=== PATIENT | female | born 1995 | race Caucasian/White ===

== ENCOUNTER 2019-06-20 07:14 | Emergency (ER) | payer OTHER ==
[2019-06-20 07:26] VITALS: BP 114/70
--- NOTE | 2019-06-20 07:27 | ED Physician Documentation ---
History of Present Illness - Stated complaint Stated Complaint: FEVER - Chief complaint Chief Complaint: Fever - History obtained from History obtained from: Patient, Family - History of Present Illness Timing: Prior to arrival - Additonal information Additional information: Patient is a previously healthy 24-year-old female presenting with several hours of fever that decreased with Tylenol administration. Patient reports that everyone in her family is sick with similar symptoms. Patient reports associated headache and one episode of dry heaves. Patient also endorses nonproductive cough. Patient denies specific abdominal pain, urinary changes, or stool changes. Unknown . No other improving or worsening factors noted. Review of Systems Constitutional: reports: Fever Ears: denies: Ear pain Nose: denies: Rhinorrhea / runny nose, Congestion Throat: denies: Sore throat Respiratory: reports: Dyspnea, Cough GI: reports: Nausea, Vomiting. denies: Abdominal Pain, Diarrhea : denies: Dysuria PD PAST MEDICAL HISTORY - Past Medical History Past Medical History: No - Past Surgical History General: Other (Hernia repair) - Allergies Allergies/Adverse Reactions: Allergies Allergy/AdvReac Type Severity Reaction Status Date / Time No Known Drug Allergies Allergy Verified 06/20/19 07:26 PD ED PE NORMAL - Vitals Vital signs reviewed: Yes - General General: Alert and oriented X 3, No acute distress, Well developed/nourished - HEENT HEENT: Atraumatic, Moist mucous membranes, Pharynx benign, Dentition benign - Neck Neck: Supple, no meningeal sign - Cardiac Cardiac: RRR, No murmur - Respiratory Respiratory: No respiratory distress, Clear bilaterally - Abdomen Abdomen: Normal bowel sounds, Soft, Non tender, Non distended - Derm Derm: Normal color, Warm and dry, No rash - Extremities Extremities: No deformity, No tenderness to palpate - Neuro Neuro: Alert and oriented X 3, No motor deficit, No sensory deficit - Psych Psych: Normal mood, Normal affect Results - Vitals Vitals: Vital Signs - 24 hr 06/20/19 07:23 Temperature 37.7 C H Heart Rate 111 H Respiratory 17 Rate Blood Pressure 114/70 O2 Saturation 97 Oxygen O2 Source Room air PD MEDICAL DECISION MAKING - ED course Complexity details: considered differential, d/w patient, d/w family ED course: Patient presenting with isolated fever that resolved with Tylenol. Did not find evidence to indicate meningitis, tonsillitis, pharyngitis, peritonsillar abscess. Do not have high suspicion for pneumonia and pulmonary exam benign. Intra-abdominal pathology is unlikely although considered. Also have low suspicion for pyelonephritis and UTI at this time. Did offer chest x-ray, as well as flu swab as patient's family is particularly concerned about influenza and patient did start symptoms within the last several hours and would be in the window of treatment with Tamiflu. However, patient declined. Discussed supportive cares, return precautions, follow-up. Departure - Departure Disposition: 01 Home, Self Care Clinical Impression: Fever Qualifiers: Fever type: unspecified Qualified Code(s): R50.9 - Fever, unspecified Condition: Good Instructions: ED Fever Unconf Cause Follow-Up: your,doctor [Other] - Within 3 Days Comments: Recommend use of Tylenol every 6 hours to control fever with consideration of not using more than 4 g in a 24-hour. If not , may also use ibuprofen to help control fever, inflammation, and muscle aches. Recommend hydration, healthy diet, and follow-up with primary care physician next 2 to 3 days. Return to ED sooner if experience worsening symptoms or have other concerns.
== END 2019-06-20 07:48 | disposition home or self-care (01) ==
LOC: ED 07:14
DX: R50.9 Fever, unspecified (principal); R51 Headache; R05 Cough; R11.2 Nausea with vomiting, unspecified
CPT/HCPCS: 99282

== ENCOUNTER 2019-10-04 11:31 | Emergency (ER) | payer OTHER ==
[2019-10-04 11:44] VITALS: BP 124/75
[2019-10-04] MEDS ORDERED: IBUPROFEN 600 MG TABLET PO STA (12:34)
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
[2019-10-04 13:36] LABS: HCG UR QUAL NEGATIVE
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
== END 2019-10-04 14:59 | disposition home or self-care (01) ==
LOC: ED 11:31
DX: S80.01XA Contusion of right knee, initial encounter (principal); S20.212A Contusion of left front wall of thorax, initial encounter; V89.2XXA Person injured in unspecified motor-vehicle accident, traffic, initial encounter; Y92.410 Unspecified street and highway as the place of occurrence of the external cause; E01.0 Iodine-deficiency related diffuse (endemic) goiter
CPT/HCPCS: 73562; 81025; 99283; 99284; A9270

== ENCOUNTER 2020-04-04 08:00 | Outpatient (CLI) | payer MEDICAID ==
--- NOTE | 2020-04-05 04:40 | Ultrasound Report ---
Reason: TEST POSITIVE Procedure Date: 04/04/2020 Accession Number: [id number] / [id number] Procedure: US - OB First Trimester CPT Code: Final Report FULL RESULT: EXAM: FIRST TRIMESTER OBSTETRIC ULTRASOUND (Less than 11 weeks) EXAM DATE: 04/04/2020 08:58 AM. CLINICAL HISTORY: TEST POSITIVE. LMP: 02/03/2020. COMPARISONS: None. TECHNIQUE: Transabdominal and transvaginal ultrasound examination with static image documentation. CLINICAL DATES: EGA 8 weeks 5 days with DURAN 11/09/2020 based on LMP. ASSESSMENT: Gestational Sac: Single intrauterine. Mean gestational sac diameter: 29 mm = 8 weeks 0 days. Embryo: CRL (crown-rump length) 20 mm = 8 weeks 4 days. Cardiac activity: 165 beats per minute. Yolk sac: 4 mm. Amniotic fluid: Not accurately assessed at this gestational age. Early placenta: Not visible at this gestational age. Other: No perigestational fluid collection demonstrated. MATERNAL STRUCTURES: Uterus: Variable position. Unremarkable. Cervix: Closed. Right Ovary/Adnexa: The ovary measures 3.1 x 2.5 x 1.7 cm, volume 7.0 cc. Corpus luteum measuring 1.4 x 1.6 x 1.3 cm. Left Ovary/Adnexa: The ovary measures 3.4 x 2.1 x 1.7 cm, volume 6.5 cc. Unremarkable. Free Fluid: Trace amount in the left adnexa. Other: None. IMPRESSION: 1. Single viable intrauterine at EGA 8 weeks 4 days 11/10/2020 with DURAN based on crown-rump length, which is concordant with clinical dates. 2. Assigned dating is DURAN 11/09/2020 based on LMP. GERALDINE
== END 2020-04-04 08:01 | disposition home or self-care (01) ==
LOC: DI 08:00
PROVIDERS: ATTEND Advanced Practice Midwife
DX: Z32.01 Encounter for pregnancy test, result positive (principal)
CPT/HCPCS: 76801; 76817

== ENCOUNTER 2020-04-15 08:00 | Outpatient (CLI) | payer MEDICAID ==
[2020-04-15 14:38] LABS: MUDS CUTOFF CONCENTRATIONS CUTOFF CONC BELOW:
[2020-04-15 14:52] LABS: BILIRUBIN,URINE NEGATIVE (NEGATIVE); GLUCOSE, URINE (UA) NEGATIVE (NEGATIVE); KETONES,URINE (UA) NEGATIVE (NEGATIVE); LEUKOCYTE ESTERASE, URINE LARGE (NEGATIVE); NITRITE,URINE NEGATIVE (NEGATIVE); OCCULT BLOOD,URINE TRACE-INTA (NEGATIVE); PH,URINE 6.5 PH (5.0-7.5); PROTEIN,URINE NEGATIVE (NEGATIVE); UROBILINOGEN,URINE 0.2 (NORMAL) E.U./dL (NORMAL)
[2020-04-15 15:02] LABS: BACTERIA,URINE Rare /HPF (None Seen); CLARITY,URINE CLEAR (CLEAR); RBC,URINE 0-5 /HPF (0-5); SQUAMOUS EPITHELIAL CELL,UR MANY Squamous (<= Few)
[2020-04-15 15:03] LABS: AMPHETAMINE SCREEN,URINE NEGATIVE (NEGATIVE); BENZODIAZEPINES SCREEN, URINE NEGATIVE (NEGATIVE); COCAINE SCREEN URINE NEGATIVE (NEGATIVE); METHADONE SCREEN, URINE NEGATIVE (NEGATIVE); METHAMPHETAMINES SCREEN, URINE NEGATIVE (NEGATIVE); OPIATE SCREEN, URINE NEGATIVE (NEGATIVE); OXYCODONE SCREEN, URINE NEGATIVE (NEGATIVE); PROPOXYPHENE SCREEN, URINE NEGATIVE (NEGATIVE); TRICYCLIC ANTIDEPRESSANT,URINE NEGATIVE (NEGATIVE)
== END 2020-04-15 23:59 | disposition home or self-care (01) ==
LOC: LAB.R 08:00
PROVIDERS: ATTEND Advanced Practice Midwife
DX: Z34.90 Encounter for supervision of normal pregnancy, unspecified, unspecified trimester (principal)
CPT/HCPCS: 80306; 81001; 87086; 87491; 87591; 87661

== ENCOUNTER 2020-04-15 08:00 | Outpatient (CLI) | payer MEDICAID ==
[2020-04-15 18:52] LABS: TRICHOMONAS VAGINALIS DNA NEGATIVE (NEGATIVE)
== END 2020-04-15 23:59 | disposition home or self-care (01) ==
LOC: LAB.R 08:00
PROVIDERS: ATTEND Advanced Practice Midwife
DX: Z11.3 Encounter for screening for infections with a predominantly sexual mode of transmission (principal)
CPT/HCPCS: 87491; 87591; 87661

== ENCOUNTER 2020-06-10 08:56 | Outpatient (CLI) | payer MEDICAID ==
[2020-06-10 09:34] LABS: BASOPHILS % (AUTO) 0.3 %; EOSINOPHILS # (AUTO) 0.1 10^3/uL (0.0-0.7); EOSINOPHILS % (AUTO) 1.2 %; LYMPHOCYTES # (AUTO) 1.7 10^3/uL (1.5-3.5); LYMPHOCYTES % (AUTO) 17.4 %; MEAN CORPUSCULAR HGB CONC 33.9 g/dL (32.0-36.0); MEAN CORPUSCULAR VOLUME 88.5 fL (81.0-99.0); MEAN PLATELET VOLUME 10.7 fL (7.9-10.8); MONOCYTES # (AUTO) 0.4 10^3/uL (0.0-1.0); NEUTROPHILS # (AUTO) 7.5 10^3/uL (1.5-6.6); NEUTROPHILS % (AUTO) 76.8 %; PLT - PLATELET COUNT 224 10^3/uL (130-450); RED CELL DISTRIBUTION WIDTH 13.3 % (12.0-15.0); WHITE BLOOD COUNT 9.8 x10^3/uL (4.8-10.8)
[2020-06-11 12:01] LABS: HEPATITIS C ANTIBODY NON-REACTIVE (NON-REACTIVE)
[2020-06-11 12:13] LABS: HEPATITIS B SURFACE ANTIGEN NON-REACTIVE (NON-REACTIVE)
[2020-06-11 12:45] LABS: HIV AG/AB 4TH GEN NON-REACTIVE (NON-REACTIVE)
== END 2020-06-10 08:57 | disposition home or self-care (01) ==
LOC: LAB 08:56
PROVIDERS: ATTEND Advanced Practice Midwife
DX: Z34.90 Encounter for supervision of normal pregnancy, unspecified, unspecified trimester (principal); Z36.0 Encounter for antenatal screening for chromosomal anomalies
CPT/HCPCS: 36415; 81220; 81511; 81599; 85025; 86592; 86762; 86803; 86850; 86900; 86901; 87340; 87389

== ENCOUNTER 2020-06-20 06:27 | Outpatient (CLI) | payer MEDICAID ==
--- NOTE | 2020-06-20 10:18 | Ultrasound Report ---
PROCEDURE: OB Detailed Eval INDICATIONS: SUPERVISION OF NORMAL OUTSIDE/PRIOR DATING DATA: Last menstrual period (LMP): 02/03/2020. LMP-based estimated date of delivery (DURAN): 11/09/2020. First dating scan (date and location): 04/04/2020. Estimated date of delivery (DURAN) from first dating scan: 11/10/2020. TECHNIQUE: Real-time scanning was performed of the fetus, with image documentation and biometric measurements. Endovaginal scanning: Not needed. COMPARISON: 04/04/2020 OB ultrasound. FINDINGS: General: A single living intrauterine gestation is present. Presentation: Vertex Placenta: Placental position is posterior, without previa. Amniotic fluid index: 11.5 cm, 20th percentile for gestational age. heart rate: 135 beats per minute. Maternal cervical canal: 4.7 cm long; normal length is 2.5 cm or more. biometrics: Biparietal diameter: 4.4 cm, 19 weeks 1 day Head circumference: 16.6 cm, 19 weeks 2 days Abdominal circumference: 14.6 cm, 19 weeks 6 days Femur length: 3.0 cm, 19 weeks 2 days Estimated gestational age from initial scan: 19 weeks 4 days. Composite gestational age from present scan: 19 weeks 3 days Estimated weight and percentile: 298 g, 43rd percentile Measurement variability in biometric dating: +/- 10 days from 12-20 weeks gestation, +/- 2 weeks from 20-30 weeks gestation, +/- 3 weeks at 30 weeks gestation or later. Anatomic survey: Neuro: Ventricles are normal at less than 10 mm. Cisterna magna is normal at 3-11 mm. Cerebellum i s normal in size and morphology. Nuchal skin fold: Normal at less than 6 mm between 14 and 20 weeks gestational age. Face: Nose and lips, facial profile are normal. Spine: No evidence for spina bifida. Heart: 4-chambered heart is present, with normal ventricular outflow tracts. Diaphragm: Diaphragm is intact. Stomach: Left-sided stomach is present. Kidneys: No hydronephrosis. Normal is less than 5 mm in 2nd trimester, less than 7 mm in 3rd trimester. Cord: 3 vessel cord has orthotopic insertion. Bladder: Normal in size. Extremities: All 4 extremities are visualized. IMPRESSION: Appropriate interval growth, normal survey of anatomy. Somewhat limited quality of visualizatio n of the spine, facial profile, hands and feet due to maternal body habitus. Reviewed by: Eliu Fierro MD on 06/20/2020 10:17 AM PDT Approved by: Eliu Fierro MD on 06/20/2020 10:17 AM PDT Station ID: [id number]
== END 2020-06-20 06:28 | disposition home or self-care (01) ==
LOC: DI 06:27
PROVIDERS: ATTEND Advanced Practice Midwife
DX: Z34.90 Encounter for supervision of normal pregnancy, unspecified, unspecified trimester (principal)
CPT/HCPCS: 76811

== ENCOUNTER 2020-08-21 08:00 | Outpatient (CLI) | payer MEDICAID ==
[2020-08-21 11:52] LABS: MEAN CORPUSCULAR HEMOGLOBIN 28.6 pg (27.0-31.0); MEAN CORPUSCULAR VOLUME 89.6 fL (81.0-99.0); MEAN PLATELET VOLUME 11.1 fL (7.9-10.8); RED BLOOD COUNT 3.84 10^6/uL (4.20-5.40); RED CELL DISTRIBUTION WIDTH 13.5 % (12.0-15.0); WHITE BLOOD COUNT 9.6 x10^3/uL (4.8-10.8)
== END 2020-08-21 23:59 | disposition home or self-care (01) ==
LOC: LAB.WCP 08:00
PROVIDERS: ATTEND Advanced Practice Midwife
DX: Z36.89 Encounter for other specified antenatal screening (principal)
CPT/HCPCS: 36415; 82950; 85025; 85027

== ENCOUNTER 2020-08-22 16:31 | Outpatient (CLI) | payer MEDICAID ==
[2020-08-22 17:03] VITALS: BP 122/73
--- NOTE | 2020-08-22 17:15 | PROVIDER PROGRESS NOTE ---
Subjective - Subjective Subjective: Green vaginal discharge this week, increased with time, about a dime-sized amount on underwear when she goes to restroom. No LOF, no itching, no odor, no VB. No contractions. Good FM EFG normal Vaginal pink, copious opaque cottage-cheese clumpy discharge green-yellow tint. pH <4 A/P: yeast vaginitis in , FHT normal with doppler alone. Treat with 7d monistat and call PRN problems. Objective - Vital Signs/Intake & Output Vital Signs: Vital Signs x48h Temp Pulse Resp BP Pulse Ox 08/22/20 17:02 98.2 F 73 16 122/73 100
== END 2020-08-22 17:08 | disposition home or self-care (01) ==
LOC: WFO 16:31 → FBP 16:33 → WFO 17:08
PROVIDERS: ATTEND Obstetrics & Gynecology
DX: O98.819 Other maternal infectious and parasitic diseases complicating pregnancy, unspecified trimester (principal); B37.3 Candidiasis of vulva and vagina

== ENCOUNTER 2020-09-22 16:01 | Emergency (ER) | payer MEDICAID ==
[2020-09-22 16:12] VITALS: BP 121/73
--- NOTE | 2020-09-22 16:29 | ED Physician Documentation ---
PD HPI ABD PAIN - Stated complaint Stated Complaint: ABD PX - Chief complaint Chief Complaint: Abd Pain - History obtained from History obtained from: Patient - Additional information Additional information: This is a 25-year-old G1 at 33 weeks who presents with 2 days of right periumbilical pain. She has a history of an umbilical hernia repair with mesh at that site 3 years ago. Pain is much worse with twisting and motion and is very mild to nonexistent at rest. She denies cramping or bleeding. No fluid loss. No urinary complaints. Review of Systems Constitutional: denies: Fever, Chills Cardiac: denies: Chest pain / pressure, Palpitations Respiratory: denies: Dyspnea, Cough PD PAST MEDICAL HISTORY - Past Medical History Past Medical History: No - Past Surgical History Past Surgical History: Yes General: Other - Present Medications Home Medications: Ambulatory Orders Medication Instructions Recorded Confirmed Clarithromycin [Clarithromycin ER] 1,000 mg PO DAILY #7 tab.er.24h 06/22/19 Ondansetron Odt [Zofran] 4 mg TL Q6H PRN #10 tablet 06/22/19 Cyclobenzaprine [Flexeril] 10 mg PO TID PRN #20 tablet 10/04/19 - Allergies Allergies/Adverse Reactions: Allergies Allergy/AdvReac Type Severity Reaction Status Date / Time clindamycin Allergy Rash Verified 09/22/20 16:11 - Social History Does the pt smoke?: No Smoking Status: Never smoker Does the pt drink ETOH?: Yes Does the pt have substance abuse?: No - Immunizations Immunizations are current?: Yes - POLST Patient has POLST: No PD ED PE NORMAL - Vitals Vital signs reviewed: Yes - General General: Alert and oriented X 3, No acute distress - Abdomen Abdomen: Normal bowel sounds, Soft, Non tender, Other (Bedside sono live IUP HR 136) - Back Back: No CVA TTP, No spinal TTP - Derm Derm: Normal color, Warm and dry - Neuro Neuro: Alert and oriented X 3 Results - Vitals Vitals: Vital Signs - 24 hr 09/22/20 16:02 Temperature 36.6 C Heart Rate 78 Respiratory 20 Rate Blood Pressure 121/73 O2 Saturation 99 Oxygen O2 Source Room air - Labs Labs: Laboratory Tests 09/22/20 09/22/20 16:51 16:51 WBC 8.8 RBC 3.77 L Hgb 10.9 L Hct 33.2 L MCV 88.1 MCH 28.9 MCHC 32.8 RDW 13.3 Plt Count 211 MPV 10.3 Neut # (Auto) 6.2 Lymph # (Auto) 1.8 [place] # (Auto) 0.7 Eos # (Auto) 0.1 Baso # (Auto) 0.0 Absolute Nucleated RBC 0.00 Nucleated RBC % 0.0 Sodium 133 L Potassium 3.6 Chloride 102 Carbon Dioxide 23 Anion Gap 8.0 BUN 6 Creatinine 0.5 Estimated GFR (MDRD) 152 Glucose 72 Calcium 8.7 PD MEDICAL DECISION MAKING - ED course ED course: 25-year-old woman presents with right-sided abdominal pain at the site of an old hernia repair with mesh. She is 33 weeks . Fetus looks fine on ultrasound and nonstress testing is reported to be normal by the OB nurse. She remained nontender on reevaluation. No white count. Departure - Departure Disposition: 01 Home, Self Care Clinical Impression: Abdominal pain Qualifiers: Abdominal location: generalized Qualified Code(s): R10.84 - Generalized abdominal pain Record reviewed to determine appropriate education?: Yes Instructions: ED Strain Abdominal Muscle Comments: Blood work looks good, this could be round ligament pain or recurrent hernia. Return if worsening. Follow-up with your OB regardless, next available appointment. Discharge Date/Time: 09/22/20 17:44
[2020-09-22 17:10] LABS: BASOPHILS % (AUTO) 0.2 %; EOSINOPHILS # (AUTO) 0.1 10^3/uL (0.0-0.7); EOSINOPHILS % (AUTO) 0.9 %; HGB - HEMOGLOBIN 10.9 g/dL (12.0-16.0); LYMPHOCYTES # (AUTO) 1.8 10^3/uL (1.5-3.5); LYMPHOCYTES % (AUTO) 20.5 %; MEAN CORPUSCULAR HEMOGLOBIN 28.9 pg (27.0-31.0); MEAN CORPUSCULAR HGB CONC 32.8 g/dL (32.0-36.0); MEAN CORPUSCULAR VOLUME 88.1 fL (81.0-99.0); MEAN PLATELET VOLUME 10.3 fL (7.9-10.8); MONOCYTES # (AUTO) 0.7 10^3/uL (0.0-1.0); MONOCYTES % (AUTO) 7.6 %; NEUTROPHILS # (AUTO) 6.2 10^3/uL (1.5-6.6); NEUTROPHILS % (AUTO) 70.2 %; PLT - PLATELET COUNT 211 10^3/uL (130-450); RED BLOOD COUNT 3.77 10^6/uL (4.20-5.40); RED CELL DISTRIBUTION WIDTH 13.3 % (12.0-15.0); WHITE BLOOD COUNT 8.8 x10^3/uL (4.8-10.8)
[2020-09-22 17:21] LABS: CALCIUM 8.7 mg/dL (8.5-10.3); CREATININE 0.5 mg/dL (0.4-1.0)
--- NOTE | 2020-09-22 19:50 | PROCEDURE REPORT ---
- HPI Diagnosis/Indication for NST: Other (Seen in ED for periumbical pain related to hernia repair) Current EDU 11/09/20 Gestation 33 Weeks and 1 Days 1 Para 0 Vital Signs Temperature 97.9 F 09/22/20 16:02 Heart Rate 78 09/22/20 16:02 Respiratory Rate 20 09/22/20 16:02 Blood Pressure 121/73 09/22/20 16:02 O2 Saturation 99 09/22/20 16:02 Temperature 97.9 F 09/22/20 16:02 Heart Rate 78 09/22/20 16:02 Respiratory Rate 20 09/22/20 16:02 Blood Pressure 121/73 09/22/20 16:02 O2 Saturation 99 09/22/20 16:02 - NST Procedure NST Procedure Start Date 09/22/20 Start Time 16:32 Stop Time 17:00 Vibroacoustic Stimulation Used No Patient States Movement Yes EFM 120 mod jeff 15x15 accels no decels TOCO: quiet - Results and Plan Findings/Impression: Patient is a 25 yo at 33+1 wga seen in ED for pain related to hernia mesh. Endorses FM. No CTX/VB/LOF Cat I tracing with no evidence of PTL FU in clinic for routine PNC.
== END 2020-09-22 17:44 | disposition home or self-care (01) ==
LOC: ED 16:01
DX: O99.891 Other specified diseases and conditions complicating pregnancy (principal); R10.84 Generalized abdominal pain; T85.848A Pain due to other internal prosthetic devices, implants and grafts, initial encounter; Y83.8 Other surgical procedures as the cause of abnormal reaction of the patient, or of later complication, without mention of misadventure at the time of the procedure; Z3A.33 33 weeks gestation of pregnancy
CPT/HCPCS: 36415; 80048; 85025; 99282; 99283

== ENCOUNTER 2020-10-02 12:22 | Outpatient (CLI) | payer MEDICAID ==
[2020-10-02 16:17] VITALS: BP 119/66
[2020-10-02 17:38] LABS: MEAN CORPUSCULAR HEMOGLOBIN 30.1 pg (27.0-31.0); MEAN CORPUSCULAR HGB CONC 34.3 g/dL (32.0-36.0); MEAN CORPUSCULAR VOLUME 87.7 fL (81.0-99.0); MEAN PLATELET VOLUME 10.4 fL (7.9-10.8); RED BLOOD COUNT 3.66 10^6/uL (4.20-5.40); RED CELL DISTRIBUTION WIDTH 13.3 % (12.0-15.0); WHITE BLOOD COUNT 10.3 x10^3/uL (4.8-10.8)
--- NOTE | 2020-10-02 19:31 | Ultrasound Report ---
PROCEDURE: OB Limited INDICATIONS: rule out abruption OUTSIDE/PRIOR DATING DATA: Last menstrual period (LMP): 02/03/2020. LMP-based estimated date of delivery (DURAN): 11/09/2020. First dating scan (date and location): 04/04/2020. Estimated date of delivery (DURAN) from first dating scan: 11/10/2020. TECHNIQUE: Real-time scanning was performed of the fetus, with image documentation. Endovaginal scanning: Endovaginal scanning was performed and will be reported separately. COMPARISON: 06/20/2020 FINDINGS: A single living intrauterine gestation is present. Presentation: Vertex Placenta: Placental position is posterior, without previa. Amniotic fluid index: 17.3 cm, 69th percentile for gestational age. Largest vertical pocket measured 5.1 cm heart rate: 125 beats per minutes. Maternal cervical canal: 3.7 cm long; normal length is 2.5 cm or more. Estimated gestational age from initial scan: 34 weeks and 3 days. IMPRESSION: Single living intrauterine gestation at approximately 34 weeks and 3 days gestational age. No evidenc e for placental abruption. Recommend continued clinical surveillance. Findings were reported to ATIF Evans at 1844 hours by the carpenter rough Reviewed by: Alberto Lockwood MD on 10/02/2020 6:29 PM [place] Approved by: Alberto Lockwood MD on 10/02/2020 6:29 PM [facility] Station ID: [id number]
--- NOTE | 2020-10-02 19:32 | Ultrasound Report ---
PROCEDURE: OB Limited INDICATIONS: rule out abruption OUTSIDE/PRIOR DATING DATA: Last menstrual period (LMP): 02/03/2020. LMP-based estimated date of delivery (DURAN): 11/09/2020. First dating scan (date and location): 04/04/2020. Estimated date of delivery (DURAN) from first dating scan: 11/10/2020. TECHNIQUE: Real-time scanning was performed of the fetus, with image documentation. Endovaginal scanning: Endovaginal scanning was performed to evaluate cervical length. COMPARISON: 06/20/2020 FINDINGS: A single living intrauterine gestation is present. Presentation: Vertex Placenta: Placental position is posterior, without previa. Amniotic fluid index: 17.3 cm, 69th percentile for gestational age. Largest vertical pocket measured 5.1 cm heart rate: 125 beats per minutes. Maternal cervical canal: 3.7 cm long; normal length is 2.5 cm or more. Estimated gestational age from initial scan: 34 weeks and 3 days. IMPRESSION: Single living intrauterine gestation at approximately 34 weeks and 3 days gestational age. No evidenc e for placental abruption. Maternal cervix is normal in length and closed. Recommend continued clinical surveillance. Findings were reported to ATIF Evans at 1844 hours by the bead supervisor Reviewed by: Alberto Lockwood MD on 10/02/2020 6:30 PM [facility] Approved by: Alberto Lockwood MD on 10/02/2020 6:30 PM [facility] Station ID: [id number]
--- NOTE | 2020-10-02 19:48 | PROVIDER PROGRESS NOTE ---
- HPI Chief Complaint: Fall Current : Current EDU 11/09/20 Gestation 34 Weeks and 4 Days 1 Para 0 Vital Signs Temperature 36.7 C 10/02/20 12:34 Heart Rate 88 10/02/20 12:34 Respiratory Rate 16 10/02/20 12:34 Blood Pressure 111/71 10/02/20 12:34 O2 Saturation 99 10/02/20 12:34 Temperature 37.1 C 10/02/20 16:16 Heart Rate 81 10/02/20 16:16 Respiratory Rate 16 10/02/20 16:16 Blood Pressure 119/66 10/02/20 16:16 O2 Saturation 99 10/02/20 16:16 - Procedures OB Procedure Performed: NST Diagnosis/Indication for NST: Other NST Procedure: NST Procedure Start Time 16:32 Stop Time 17:00 - Plan Plan: S: Karuna presents to [facility] after being directed to do so by [facility] secondary to a fall that occurred last night at approximately 1830- 1900. [place] a boat and states she was walking and fell through a lujan and down the stairs. She denies losing consciousness or hitting her head. She states she fell on her right hip and does not feel her belly was directly impacted but is feeling some tenderness in her right hip/side area. She denies vaginal bleeding or leakage of fluid and she reports +FM. She states she did not call last night when she fell because she did not feel her abdomen was affected and she did not experience any decreased movement or contractions. She reports this morning she did notice some lower back pain which she rates 6/10 on a pain scale that is constant. She took 1000mg ibuprofen at approximately 1100 this afternoon and did feel it helped slightly. She decided to call the clinic secondary to some new onset lower abdominal tightening which lasts anywhere from 10-30 seconds. She states this morning and throughout the afternoon she continued to feel consistent movement and denies vaginal bleeding or leakage of fluid. She denies GARCES, visual disturbances, RUQ or epigastric pain. She denies urinary symptoms. O: BP 111/71, T 36.7, RR 16. Heart RRR w/o M/G/R, lungs CTAB, abdomen gravid, soft and nontender. No rigidity noted on palpation. movement appreciated with abdominal palpation. Bilateral LE's no edema. NST performed 10/02/2020 NST read 10/02/2020 NST reactive: FHR baseline 135, moderate variability, + accels, no decels Contractions visible ranging from 10-40 seconds via tocometry and pt appreciates contractions in her lower abdomen and rates them 5-6/10 on a pain scale currently. Contractions palpate mild. Limited OB ultrasound reveals single, viable intrauterine . Posterior placenta w/o evidence of previa or obvious abruption. 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 CBC WNL - platelet 190 Fibrinogen 507 A: Fall in FHR Category I (monitored x 6.5 hours with monitoring ending 24 hours after fall occurred) No evidence of abruption Mild, intermittent uterine contractions with labor and placental abruption ruled out RH-positive Plan: Reviewed warning signs and symptoms in depth with pt and advised her to present immediately with worsening discomfort with contractions, vaginal bleeding, leakage of fluid, or decreased movement. Advised increased fluid intake and rest. Encouraged rest through the weekend and pt states it will not be a problem for her to take the day off of work tomorrow and rest until Tuesday. Call the office in the morning for appt next week rather than waiting for regularly scheduled appt 10/15. Pt and partner at the bedside verbalized understanding and both agree to above plan. They deny further questions or concerns at this time. Diagnosis: Fall in , third trimester at 34.4wks gestation
== END 2020-10-02 19:05 | disposition home or self-care (01) ==
LOC: WFO 12:22 → FBP 12:24 → WFO 19:05
PROVIDERS: ATTEND Nurse Practitioner Obstetrics & Gynecology
DX: O9A.213 Injury, poisoning and certain other consequences of external causes complicating pregnancy, third trimester (principal); O99.891 Other specified diseases and conditions complicating pregnancy; M54.5 Low back pain; M25.551 Pain in right hip; Z3A.34 34 weeks gestation of pregnancy; W10.8XXA Fall (on) (from) other stairs and steps, initial encounter; Y92.814 Boat as the place of occurrence of the external cause
CPT/HCPCS: 36415; 76815; 76817; 85027; 85384; 99215

== ENCOUNTER 2020-10-15 08:00 | Outpatient (CLI) | payer MEDICAID | END 2020-10-15 23:59 | disposition home or self-care (01) | LOC: LAB.R 08:00 | PROVIDERS: ATTEND Advanced Practice Midwife | DX: Z34.90 Encounter for supervision of normal pregnancy, unspecified, unspecified trimester (principal); Z36.85 Encounter for antenatal screening for Streptococcus B | CPT/HCPCS: 87797 ==

== ENCOUNTER 2020-10-23 20:52 | Outpatient (CLI) | payer MEDICAID ==
[2020-10-23 21:40] VITALS: BP 119/75
--- NOTE | 2020-10-24 08:41 | PROVIDER PROGRESS NOTE ---
- HPI Chief Complaint: Labor Check Current : Current EDU 11/09/20 Gestation 37 Weeks and 4 Days 1 Para 0 Vital Signs Temperature 36.7 C 10/23/20 21:00 Heart Rate 81 10/23/20 21:00 Respiratory Rate 20 10/23/20 21:00 Blood Pressure 120/81 H 10/23/20 21:00 O2 Saturation 99 10/23/20 21:00 Temperature 36.7 C 10/23/20 21:00 Heart Rate 93 10/23/20 21:40 Respiratory Rate 10/23/20 21:40 Blood Pressure 119/75 10/23/20 21:40 O2 Saturation 99 10/23/20 21:00 - Exam 1 CM - Procedures OB Procedure Performed: NST Diagnosis/Indication for NST: Other (pRODROMAL LABOR) NST Procedure: NST Procedure Start Time 16:32 Stop Time 17:00 Service Date of procedure: 10/23/20 Findings: NOT IN LABOR - Plan Plan: REVIEWED CONTRACTIONS, FM, SROM
== END 2020-10-23 21:55 | disposition home or self-care (01) ==
LOC: WFO 20:52 → FBP 20:54 → WFO 21:55
PROVIDERS: ATTEND Obstetrics & Gynecology
DX: Z34.03 Encounter for supervision of normal first pregnancy, third trimester (principal); Z3A.37 37 weeks gestation of pregnancy
CPT/HCPCS: 99213

== ENCOUNTER 2020-10-27 17:49 | Inpatient (IN) | payer MEDICAID ==
[2020-10-27 19:02] LABS: RUPTURE OF MEMBRANES PLUS NEGATIVE (NEGATIVE)
[2020-10-27] MEDS ORDERED: CARBOPROST TROMETHAMINE 250 MCG/ML AMP IM PRN (19:51)
[2020-10-27] MEDS ORDERED: TRANEXAMIC ACID 1,000 MG in SODIUM CHLORIDE 0.9% 100ML 100 ML IV PRN (19:51)
[2020-10-27] MEDS ORDERED: METHYLERGONOVINE 0.2 MG/ML VIAL IM PRN (19:51)
[2020-10-27] MEDS ORDERED: OXYTOCIN 10 UNIT/ML VIAL IM PRN (19:51)
[2020-10-27] MEDS ORDERED: LIDOCAINE-MPF 1% 30 ML VIAL ID PRN (19:51)
[2020-10-27] MEDS ORDERED: OXYTOCIN/SODIUM CHLORIDE 500 ML IV PRN (19:51)
[2020-10-27] MEDS ORDERED: SODIUM CHLORIDE FLUSH 0.9% 10 ML SYRINGE IVP PRN (19:51)
[2020-10-27] MEDS ORDERED: miSOPROStoL 200 MCG TABLET BC PRN (19:51)
--- NOTE | 2020-10-27 20:19 | HISTORY & PHYSICAL EXAMINATION ---
Admit History - Visit Reason Visit Reason: Membranes rupture - : 1 Parity: 0 Premature: 0 Ectopic: 0 : 0 Care: positive: [facility] Risk/History: positive: None Complications This : positive: None Smoking Status: Never smoker - Mother's Labs Mother's Blood Type: positive: O Mother's RH: positive: Positive GBS: positive: Group B Step Negative Rubella Status: positive: Immune Meds/Allgy - Home Medications Home Medications: Ambulatory Orders Medication Instructions Recorded Confirmed Clarithromycin [Clarithromycin ER] 1,000 mg PO DAILY #7 tab.er.24h 06/22/19 Ondansetron Odt [Zofran] 4 mg TL Q6H PRN #10 tablet 06/22/19 Cyclobenzaprine [Flexeril] 10 mg PO TID PRN #20 tablet 10/04/19 - Allergies Allergies/Adverse Reactions: Allergies Allergy/AdvReac Type Severity Reaction Status Date / Time clindamycin Allergy Rash Verified 09/22/20 16:11 Review of Systems - Constitutional Constitutional: denies: Fatigue, Fever, Chills, Malaise - Eyes Eyes: denies: Blurred vision, Spots in vision, Dipolpia - Cardiovascular Cariovascular: denies: Irregular heart rate, Palpitations, Chest pain, Edema - Respiratory Respiratory: denies: Cough, SOB at rest - Gastrointestinal Gastrointestinal: denies: Abdominal pain, Constipation, Diarrhea, Change in bowel habits - Integumentary Integumentary: denies: Rash, Pruritis - Neurological Neurological: denies: Headache Physical - Abdominal Exam Vital Signs: Temp Pulse Resp BP Pulse Ox 36.9 C 96 16 115/80 100 10/27/20 18:05 10/27/20 18:05 10/27/20 18:05 10/27/20 18:05 10/27/20 18:05 Contraction Frequency (min/apart): intermittent Contraction Intensity: positive: Mild Uterine Resting Tone: positive: Soft - Monitoring Heart Rate Baseline: 125 Strip Review: positive: Category I - Presentation Presentation: positive: Vertex - Vaginal Exam Membranes: positive: Membranes ruptured Dilation (in cm): 1 Effacement (%): 50 Station: positive: -2 Cervical Position: positive: Midposition - Speculum Exam Speculum Exam Performed: positive: Yes Findings: positive: Gross leak, Fern, Nitrazine, Other Plan for Labor - Plan For Labor I expect patient to be DC'd or transferred within 96 hours.: Yes Plan for Labor: HPI: This 25yo @ 38.1wks gestation by LMP c/w 8.5wk U/S presented to [facility] on 10/27/2020 at approximately 1750 with complaints of vaginal leakage of fluid. She reports last night in the middle of the night around 0230 she woke up feeling her bed saturated with clear fluid and was unsure if she had experienced leakage of urine. She got up to the bathroom and noted increased amount of urine than she is normally used to. She went back to bed and throughout today she has noticed a small amount of continued leaking of clear fluid which she was thinking could be normal vaginal discharge associated with . She reports this afternoon at approximately 1430 she was walking and experienced a notable increase in vaginal leakage. She states she called through the answering service as soon as she got home and was instructed to present. She denies vaginal bleeding. She reports intermittent cramping in her lower back which has been present for the past 4 days. She reports +FM. She has not had intercourse in the past 48 hours. She denies itching, burning, or foul odor associated with vaginal fluid. Upon arrival patient was noted to have gross leakage of clear vaginal fluid on a panty liner. Nitrizine was positive. A ROM+ was collected and returned negative. A sterile speculum exam was performed and revealed +pooling with visible leakage of clear vaginal fluid from cervical os when patient instructed to cough. Nitrizine positive. Sterile specimen collected for microscopic examination and revealed large amount of ferning. In addition, there was noted to be a white curd-like discharge with examination and an AFFIRM was collected. SVE /-2, midposition. Vertex. Karuna has been a patient of [facility] through the duration of her which has remained uncomplicated. She will be admitted to [facility] for active management of premature rupture of membranes and cervical ripening with be initiated. She is accompanied and supported by her partner Simba. Dating criteria: LMP - 02/03/2020 Initial U/S @ 8.5wks c/w LMP dating Serial exams - agree OB Hx: G1: Current Medications: PNV, Zyrtec, Zofran PRN Allergies: Cephalexin (Severe) PMHx: Asthma Surgical Hx:Hernia (2017), Shoulder (labrum) 2013 Family Hx: Diabetes- MGM; HTN - Mother; Coronary heart disease - MGF Social Hx: Never smoker, no ETOH or IVDA. Partner Ramon. Gonzalez (9yo Marlo). Works as a [employer] Course: Initial US: 04/04/2020 at 8.5wks for DURAN of 11/09/2020 which is c/w LMP. O pos/Rubella immune Gentic testing: Quad-neg; CF-neg FAS: Posterior placenta. BOO wnl. EFW 43%. 3VC. Some limited visualization, but followup not recommended. Glucola -117 TDAP 08/13/2020 FLU: 09/03/2020 GBS NEG HSV: denies self and partner Breast pump Rx: 09/03/2020 MOD: . Desires NCB, but open. Spouse: Simba (has 9yo chula Sellers), Having a BOY: Elvis Chin. pp contraception: desires Nexplanon. Has had in past. PAP: 11/2018-wnl (per pt) Physical Exam: Normocephalic, atraumatic Heart RRR w/o M/G/R Lungs CTAB Abdomen gravid, soft, nontender FHR baseline 125, moderate variability, + accels, no decels Intermittent contractions with overall uterine irritability noted via tocometry SVE 1/50/-2, midposition. Vertex. Membranes grossly ruptured (6hrs vs 19hrs - see HPI) ROM+ negative. However, gross leakage of fluid noted. Sterile speculum exam + pooling, + nitrizine, + ferning Bilateral LE's no edema Mood is good. Assessment: Premature rupture of membranes FHR Category I GBS negative Plan: Admit to [facility] for active management Initiate misoprostol 50mcg BC q 4 hours for cervical ripening. Initiate pitocin with titration per protocol when marino score is favorable. Continuous monitoring Jacuzzi PRN. Nitrous oxide PRN. Epidural per maternal request. Anticipate .
[2020-10-27] MEDS: miSOPROStoL 100 MCG TABLET BC SCH (21:25)
[2020-10-27 21:41] LABS: BASOPHILS % (AUTO) 0.3 %; EOSINOPHILS # (AUTO) 0.1 10^3/uL (0.0-0.7); EOSINOPHILS % (AUTO) 0.6 %; HGB - HEMOGLOBIN 11.6 g/dL (12.0-16.0); LYMPHOCYTES # (AUTO) 2.3 10^3/uL (1.5-3.5); LYMPHOCYTES % (AUTO) 19.8 %; MEAN CORPUSCULAR HEMOGLOBIN 28.2 pg (27.0-31.0); MEAN CORPUSCULAR HGB CONC 32.4 g/dL (32.0-36.0); MEAN CORPUSCULAR VOLUME 86.9 fL (81.0-99.0); MEAN PLATELET VOLUME 11.1 fL (7.9-10.8); MONOCYTES # (AUTO) 0.6 10^3/uL (0.0-1.0); MONOCYTES % (AUTO) 4.8 %; NEUTROPHILS # (AUTO) 8.6 10^3/uL (1.5-6.6); NEUTROPHILS % (AUTO) 73.7 %; PLT - PLATELET COUNT 225 10^3/uL (130-450); RED BLOOD COUNT 4.12 10^6/uL (4.20-5.40); RED CELL DISTRIBUTION WIDTH 13.5 % (12.0-15.0); WHITE BLOOD COUNT 11.7 x10^3/uL (4.8-10.8)
[2020-10-28] MEDS ORDERED: SODIUM CHLORIDE FLUSH 0.9% 10 ML SYRINGE IVP SCH (01:00)
[2020-10-28] MEDS: miSOPROStoL 100 MCG TABLET BC SCH ×3 (01:33→09:46)
--- NOTE | 2020-10-28 06:58 | PROVIDER PROGRESS NOTE ---
Labor Progress Note - Uterine Monitoring Uterine Monitoring Mode: positive: External toco Contraction Frequency (min/apart): rare Contraction Intensity: positive: Mild Uterine Resting Tone: positive: Soft - Monitoring Monitor Mode: positive: External ultrasound Heart Rate Baseline: 130 Heart Rate Variability: positive: Moderate (6-25 bmp) Accelerations: positive: Present, 15x15 Decelerations: positive: None Strip Review: positive: Category I - Labor Progress Note Labor Progress Note/Additional Text: S: Pt left side lying in bed. Was able to get some rest last night and states she slept through some of the contractions. Reporting lower abdominal cramping that she is rating 7/10 when it occurs however she states she is coping well. She states the pain has not changed in intensity or frequency since yesterday however she has noticed slightly longer contractions when the occur. Partner Simba supportive at the bedside. O: BP 117/69, T 36.9, HR 66 FHR baseline 130s, moderate variability, + accels, no decels Rare uterine contractions appreciated via tocometry SVE deferred at this time S/p 3 doses of 50mcg BC misoprostol PROM x 16hrs A: 25yo @ 38.2wks gestation by LMP c/w 8.5wk U/S PROM x 16hrs FHR Category I P: Continue active management Continue cervical ripening with 50mcg BC misoprostol and repeat SVE prior to 5th dose or sooner PRN. Continuous monitoring Encouraged ambulation and position changes Nitrous oxide PRN. Epidural per maternal request. Anticipate
[2020-10-28 07:58] LABS: CANDIDA GROUP DNA POSITIVE (NEGATIVE); CANDIDA KRUSEI DNA NEGATIVE (NEGATIVE); TRICHOMONAS VAGINALIS DNA NEGATIVE (NEGATIVE)
[2020-10-28] MEDS ORDERED: OXYTOCIN/SODIUM CHLORIDE 500 ML IV SCH (13:00)
--- NOTE | 2020-10-28 13:34 | PROVIDER PROGRESS NOTE ---
Labor Progress Note - Uterine Monitoring Uterine Monitoring Mode: positive: External toco Contraction Frequency (min/apart): rare Contraction Intensity: positive: Mild Uterine Resting Tone: positive: Soft - Monitoring Monitor Mode: positive: External ultrasound Heart Rate Baseline: 125 Heart Rate Variability: positive: Moderate (6-25 bmp) Accelerations: positive: Present, 15x15 Decelerations: positive: None Strip Review: positive: Category I - Vaginal Exam Dilation (in cm): 1 Effacement (%): 50 Station: -3 Cervical Position: Midposition - Labor Progress Note Labor Progress Note/Additional Text: S: Feeling comfortable in bed. Feels occasional lower abdominal cramping but nothing overly uncomfortable at this time. Feeling well overall. Partner Simba supportive at the bedside. O: BP 116/66, T 36.8, HR 80 FHR baseline 125, moderate variability, + accels, no decels Contractions palpate mild on occasion with soft resting tone. SVE 1/50/-3, midposition, Vertex. PROM x 22.5hrs s/p 4 doses of 50mcg BC misoprostol A: 25yo @ 38.2wks gestation by LMP c/w 8.5wk U/S PROM x 22.5hrs - no evidence of infection FHR Category I GBS negative P: Initiate pitocin for induction of labor secondary to PROM with titration per protocol Continuous monitoring Q 4 hr vitals or PRN. Close monitoring of maternal fever. 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 Reviewed plan of care and physician states she is in agreement with above plan. Encouraged ambulation and position changes. Nitrous oxide PRN. Epidural per maternal request. Reviewed plan of care with pt, partner, and labor RN at the bedside who are all in agreement with above plan and deny further questions or concerns at this time. Anticipate .
[2020-10-28] MEDS: LACTATED RINGERS 1,000 ML IV SCH ×2 (13:40→20:02)
[2020-10-28] MEDS ORDERED: FLUCONAZOLE 100 MG TABLET PO ONE (17:18)
--- NOTE | 2020-10-28 18:11 | PROVIDER PROGRESS NOTE ---
Labor Progress Note - Uterine Monitoring Uterine Monitoring Mode: positive: External toco Contraction Frequency (min/apart): 4-8 Contraction Intensity: positive: Moderate Uterine Resting Tone: positive: Soft - Monitoring Monitor Mode: positive: External ultrasound Heart Rate Baseline: 135 Heart Rate Variability: positive: Moderate (6-25 bmp) Accelerations: positive: Present, 15x15 Decelerations: positive: None Strip Review: positive: Category I - Labor Progress Note Labor Progress Note/Additional Text: S: Pt talking through contractions however she is rating the contraction 9/10 on a pain scale. [facility] and states she is not ready for addition pain management at this time. She appears to be coping well. Her partner is supportive at the bedside. O: BP 124/88, T36.8 FHR baseline 135, moderate variability, + accels, no decels Contractions palpate moderate every 3-6 min with soft resting tone Pitocin currently infusing at 10mU/mL Metronidazole 500mg administered PO for treatment of bacterial vaginosis Diflucan 150mg administered PO for treatment of vaginal bertha A: 25yo @ 38.2wks gestation by LMP c/w 8.5wk U/S FHR Category I PROM x 28 hours- afebrile bacterial vaginosis - treated PO Vulvovaginal bertha- treated PO P: Continue active management with pitocin with titration per protocol Continuous monitoring Closely monitoring for s/sx of infection. Encouraged ambulation and position changes. Epidural per maternal request. Anticipate .
[2020-10-28] MEDS: metroNIDAZOLE 250 MG TABLET PO SCH (18:25)
--- NOTE | 2020-10-28 19:00 | PROVIDER PROGRESS NOTE ---
Labor Progress Note - Uterine Monitoring Uterine Monitoring Mode: positive: External toco Contraction Frequency (min/apart): 2-6 Contraction Intensity: positive: Mild to moderate Uterine Resting Tone: positive: Soft - Monitoring Monitor Mode: positive: External ultrasound Heart Rate Baseline: 140 Heart Rate Variability: positive: Moderate (6-25 bmp) Accelerations: positive: Present, 15x15 Decelerations: positive: None Strip Review: positive: Category I - Vaginal Exam Dilation (in cm): 3 Effacement (%): 50 Station: -1 Cervical Position: Midposition - Labor Progress Note Labor Progress Note/Additional Text: Pt requesting epidural for pain management - anesthesia notified.
--- NOTE | 2020-10-28 19:21 | ANESTHESIA ---
Pre-Anesthesia VS, & Labs - Diagnosis active labor - Procedure vaginal delivery Vital Signs: Temp Pulse Resp BP Pulse Ox 36.9 C 66 18 117/69 100 10/28/20 05:47 10/28/20 05:47 10/28/20 05:47 10/28/20 05:47 10/27/20 18:05 Height: 5 ft 7 in Weight (kg): 101.605 kg Body Mass Index: 35.0 BMI Classification: Obese - NPO Other (n/A labor) - Is Patient ?: Yes - Lab Results Current Lab Results: Laboratory Tests 10/27/20 20:40: Blood Type O POSITIVE, Antibody Screen NEGATIVE 10/27/20 20:40: WBC 11.7 H, RBC 4.12 L, Hgb 11.6 L, Hct 35.8 L, MCV 86.9, MCH 28.2, MCHC 32.4, RDW 13.5, Plt Count 225, MPV 11.1 H, Neut # (Auto) 8.6 H, Lymph # (Auto) 2.3, [place] # (Auto) 0.6, Eos # (Auto) 0.1, Baso # (Auto) 0.0, Absolute Nucleated RBC 0.00, Nucleated RBC % 0.0 Fish Bones: 10/27/20 20:40 Home Medications and Allergies Active Medications Carboprost Tromethamine (Carboprost Tromethamine 250 Mcg/Ml Amp) 250 mcg IM Q15M PRN PRN Reason: Step 4: Hemorrhage protocol Stop: 11/01/20 19:56 Lactated Ringer's (Lr) 1,000 mls @ 150 mls/hr IV .Q6H40M PRIMO Last Admin: 10/28/20 13:40 Dose: 150 mls/hr Documented by: Oxytocin/Sodium Chloride (Pitocin/Sodium Chloride) 500 mls @ 999 mls/hr IV PRN PRN; Protocol PRN Reason: POST- HEMORR PREVENTION Stop: 11/01/20 19:56 Tranexamic Acid 1,000 mg/ (Sodium Chloride) 110 mls @ 660 mls/hr IV .ONCE PRN PRN Reason: EBL >1200mL and within 3hr Stop: 11/01/20 19:56 Oxytocin/Sodium Chloride (Pitocin/Sodium Chloride) 500 mls @ 1 mls/hr IV TITR PRIMO; Protocol Last Titration: 10/28/20 16:44 Dose: 10 milliunit/min, 10 mls/hr Documented by: Lidocaine HCl (Lidocaine-Mpf 1% 30 Ml Vial) 30 ml ID .ONCE PRN PRN Reason: PERINEAL REPAIR Stop: 11/01/20 19:56 Methylergonovine Maleate (Methylergonovine 0.2 Mg/Ml Vial) 0.2 mg IM .ONCE PRN PRN Reason: Step 2: Hemorrhage protocol Stop: 11/01/20 19:56 Metronidazole (Metronidazole 250 Mg Tablet) 500 mg PO Q8H [facility] Last Admin: 10/28/20 18:25 Dose: 500 mg Documented by: Misoprostol (Misoprostol 200 Mcg Tablet) 800 mcg BC .ONCE PRN PRN Reason: Step 3: Hemorrhage protocol Stop: 11/01/20 19:56 Oxytocin (Oxytocin 10 Unit/Ml Vial) 10 unit IM .ONCE PRN PRN Reason: Step one: If no IV access Stop: 11/01/20 19:56 Sodium Chloride (Sodium Chloride Flush 0.9% 10 Ml Syringe) 10 ml IVP PRN PRN PRN Reason: NEEDED PER PROVIDER ORDERS Sodium Chloride (Sodium Chloride Flush 0.9% 10 Ml Syringe) 10 ml IVP 0100,0900,1700 [facility] Last Admin: 10/28/20 07:59 Dose: 10 ml Documented by: Allergies/Adverse Reactions: Allergies Allergy/AdvReac Type Severity Reaction Status Date / Time cephalexin Allergy Rash Verified 10/28/20 11:57 Anes History & Medical History - Anesthetic History Anesthesia Complications: reports: No previous complications - Medical History Cardiovascular: reports: None Pulmonary: reports: Asthma (well controlled) Gastrointestinal: reports: None Urinary: reports: None Neuro: reports: None Musculoskeletal: reports: None Endocrine/Autoimmune: reports: None Blood Disorders: reports: None Skin: reports: None Smoking Status: Never smoker Psychosocial: reports: No issues indicated - Surgical History General: Other (umbilical hernia repair) Orthopedic: Shoulder arthroplasty - Obstetrical History : 1 Parity: 0 Events: positive: Premature rupture membrane Complications: positive: None Exam General: Alert, Oriented x3, Cooperative, No acute distress Dental: WNL Mouth Openin Fingerbreadth Mallampati classification: II Mental/Cognitive Status: Alert/Oriented X3, Normal for patient Plan Anesthesia Type: Epidural Consent for Procedure(s) Verified and Reviewed: Yes Code Status: Attempt Resuscitation ASA classification: 2-Mild systemic disease Is this case an emergency?: No
[2020-10-28] MEDS ORDERED: ROPIVACAINE 0.2% 200 MG/100 ML BAG EP PRN (19:22)
[2020-10-28] MEDS ORDERED: ePHEDrine 50 MG/ML VIAL IVP PRN (19:22)
[2020-10-28] MEDS ORDERED: ONDANSETRON 4 MG/2 ML VIAL IVP PRN (19:22)
[2020-10-28] MEDS ORDERED: NALBUPHINE 10 MG/ML AMP IVP PRN (19:22)
[2020-10-28] MEDS ORDERED: NALOXONE 0.4 MG/ML VIAL IVP PRN (19:22)
[2020-10-28] MEDS ORDERED: ROPIVACAINE 0.2% 200 MG/100 ML BAG EP ONE (19:27)
--- NOTE | 2020-10-29 00:10 | PROVIDER PROGRESS NOTE ---
Labor Progress Note - Uterine Monitoring Uterine Monitoring Mode: positive: External toco Contraction Intensity: positive: Moderate to strong Uterine Resting Tone: positive: Soft - Monitoring Monitor Mode: positive: External ultrasound Heart Rate Baseline: 130 Heart Rate Variability: positive: Moderate (6-25 bmp) Accelerations: positive: Present, 15x15 Decelerations: positive: None Strip Review: positive: Category I - Vaginal Exam Dilation (in cm): 8 Effacement (%): 90 Station: 0 - Labor Progress Note Labor Progress Note/Additional Text: S: Feeling comfortable with epidural. She is up for rotating in bed on peanut ball. States she has been able to get some sleep. Continued leakage of clear vaginal fluid. Partner sleeping at bedside. O: BP 114/69, HR 106, T 37.5 FHR baseline 130s, moderate variability, +accels, no decels Pitocin at 12mU/mL SVE 8/90/0. Vertex. A: 25yo @ 38.3wks gestation by LMP c/w 8.5wk U/S PROM x 34hrs - afebrile GBS negative FHR Category I P: Continuous monitoring Continue pitocin IOL with titration per protocol Maintain epidural for pain management Anticipate
[2020-10-29] MEDS ORDERED: WITCH HAZEL/GLYCERIN 1 PAD TOP PRN (03:07)
[2020-10-29] MEDS ORDERED: HYDROCORTISONE 1% CREAM 28 GM TUBE PR PRN (03:07)
--- NOTE | 2020-10-29 03:32 | DELIVERY NOTE ---
Delivery Note - Labor Labor: positive: Induced by oxytocin - Infant Delivery Method Delivery Method: positive: Spontaneous vaginal delivery - Cervical Ripening Method Cervical Ripening Method: positive: Misoprostil - Presentation Presentation: positive: SKYE - left occiput anterior - Nuchal Cord Nuchal Cord: positive: None - Amniotic Fluid Description Amniotic Fluid Description: positive: Clear - Episiotomy Type Episiotomy Type: positive: None - Laceration Laceration: positive: 1st degree, Periurethral - Suture Suture Type: positive: Vicryl Suture Size: positive: 4-0 - Delivery Outcome Delivery Outcome: positive: Livebirth - [place]: positive: Placed in direct skin contact with mother, Stimulated, Warmed, [place] used sex: positive: Male - Cord Cord: positive: 3 vessels - Placenta Placenta: positive: Intact, Spontaneous - Estimated Blood Loss Estimated Blood Loss (in cc): 300 - Post Delivery Events Post Delivery Events: positive: No post delivery events - Delivery Comments (Free Text/Narrative) Delivery Comments (Free Text/Narrative): Labor: This 25yo @ 38.3wks gestation by LMP c/w 8.5wk U/S presented on 10/27/2020 at approximately 1700 with c/o vaginal leakage of fluid since 0230 that afternoon. Cervix was 1/40/-3 and vertex. Membranes were grossly ruptured with + nitrizine, + pooling, + ferning. In addition she was noted to have curd- like discharge and an AFFIRM was collected which returned positive for both bacterial vaginosis and vagina bertha. Pt was treated with 500mg metronidazole which will continue q 8hrs x 7 days and 150mg PO diflucan x 1 dose. FHR pattern demonstrated Category I pattern throughout labor. Patient received 4 total doses of 50mcg BC misoprostol for cervical ripening. Pitocin initiated via IV for induction of labor with a maximum infusion rate of 12mU/mL. Epidural placed per maternal request. Patient progressed to c/c/+2 at 0155 with onset of active pushing at 0158. : Normal of viable male on 10/29/2020 at 0204. No nuchal cord. The was stimulated, dried, and placed skin to skin. 's were 9/9 at 1 and 5 min respectively. Pitocin administered via IV for hemostasis. The umbilical cord was allowed to stop pulsating at which time it was doubly clamped by CNM and cut by FOB. Cord blood was obtained. 3VC> Fundal massage and gentle cord traction applied for active management of the third stage. Placenta delivered spontaneously and intact at 0207. EBL 300mL. Total time of rupture 35.5 hours. Patient remained afebrile through the duration of her labor course. The placenta was sent to pathology secondary to prolonged rupture of membranes. Fourth stage: Uterine fundus firm and there is no excessive bleeding. The perineum, vagina, and cervix were inspected and found to have bilateral periurethral first degree lacerations which were repaired using a 4-0 vicryl on an SH needle in standard fashion and under sterile conditions. Vaginal examination following repair was performed. Tissues well approximated. initiated. Family bonding well. Both mother and baby were left in stable condition.
[2020-10-29] MEDS: ACETAMINOPHEN 500 MG TABLET PO SCH ×3 (06:52→22:32)
[2020-10-29] MEDS: DOCUSATE SODIUM 100 MG CAPSULE PO SCH (08:29)
[2020-10-29] MEDS: IBUPROFEN 800 MG TABLET PO SCH ×3 (08:30→20:13)
[2020-10-30] MEDS: DOCUSATE SODIUM 100 MG CAPSULE PO SCH ×2 (00:19→08:16)
[2020-10-30] MEDS: metroNIDAZOLE 250 MG TABLET PO SCH ×2 (00:19→10:06)
[2020-10-30] MEDS: IBUPROFEN 800 MG TABLET PO SCH ×2 (02:13→08:15)
--- NOTE | 2020-10-30 06:08 | PROVIDER PROGRESS NOTE ---
Subjective - Subjective Subjective: FINAL PROGRESS NOTE: S: Bonding well with baby. She is pumping and bottle feeding without difficulty and baby's weight loss is appropriate. She is concerned that her breast pump is not in yet. She has ordered it and states it was supposed to be in several days ago but is not yet. She has been given a manual pump and instructions on how to use and feels confident using this. She states she is tired but is overall feeling well. Her partner Simba is supportive at the bedside. They are excited to get to go home today. O: BP 109/46, HR 69, RR 16, T 36.6 Heart RRR w/o M/G/R, lungs CTAB, abdomen soft and nontender with fundus firm at U-1. Perineum intact. Light lochia rubra. Bilateral LE's no edema. A: 25yo ->P1 PPD#1 s/p TSVD viable male Pumping and bottle feeding 1st degree periurethral lacerations - intact Normal recovery P: Reviewed pp self care and warning s/sx and when to present. Advised continuation of PNV while lactating. Continue ibuprofen and tylenol OTC for pain management PRN F/u in 1 week for pp visit or sooner PRN. Pt verbalized understanding and agrees to above plan. She denies further questions or concerns at this time. Objective - Vital Signs/Intake & Output Vital Signs: Vital Signs x48h Temp Pulse Resp BP Pulse Ox 10/30/20 04:36 36.6 C 69 16 109/46 L 97 10/30/20 00:00 36.7 C 73 16 107/50 L 99 Intake & Output: Intake & Output 10/27/20 10/28/20 10/29/20 10/30/20 23:59 23:59 23:59 23:59 Intake Total 1673.483 Output Total 50 150 Balance 1623.483 -150 - Lab Results Fish Bones: 10/27/20 20:40
--- NOTE | 2020-10-30 06:09 | Discharge Plan ---
Discharge Plan Problem Reviewed?: Yes Disposition: Home, Self Care Condition: Good Diet: Regular Activity Restrictions: No Restrictions Shower Restrictions: No Driving Restrictions: No Weight Bearing: Full Weight No Smoking: If you smoke, Please STOP! Call for help. Follow-up with: Mai Mo CNM, ARNP [Family Provider] -
[2020-10-30] MEDS: ACETAMINOPHEN 500 MG TABLET PO SCH (07:10)
[2020-10-30 07:26] VITALS: BP 95/51
--- NOTE | 2020-10-30 11:05 | DISCHARGE SUMMARY ---
Physician: JULIA Morgan DATE OF ADMISSION: 10/27/2020 DATE OF DISCHARGE: 10/30/2020 DIAGNOSES ON ADMISSION 1. A 25-year-old, G1, P0 at 38.1 weeks' gestation. 2. Premature rupture of membranes. 3. Group B Streptococcus negative. DIAGNOSES ON DISCHARGE 1. A 25-year-old, G1, P1-0-0-1, status post spontaneous vaginal delivery on 10/29/2020. 2. First-degree periurethral laceration intact. 3. Normal recovery. BRIEF HISTORY: She is a patient of [facility], who presented on 10/27/2020 with complaints of vaginal leakage of fluid. Cervix was 1 cm dilated, 40% effaced, -3 station, and vertex position. Membranes were grossly ruptured with positive Nitrazine, positive pooling, and positive ferning. In addition, she was noted to have curd-like discharge, and a AFFIRM was collected, which returned positive for both bacterial vaginosis and vaginal [place]. Patient was treated with 500 mg of metronidazole, which will continue q.8 hours x7 days and 150 mg p.o. Diflucan x1 dose. Patient was given a total of 4 doses of 50 mcg buccal misoprostol for preinduction cervical ripening. She was then induced with Pitocin with titration per protocol for a maximum infusion rate of 12 mU/mL. She progressed to spontaneously deliver a viable male infant on 10/29/2020 at 0204. Apgars were 9 and 9 at one and five minutes, respectively. Despite prolonged rupture of membranes, the patient remained asymptomatic and afebrile throughout her labor course. Her has also remained asymptomatic. Her EBL was 300 mL. The patient was noted to have first-degree bilateral periurethral lacerations, which were repaired using 4-0 Vicryl on an SH needle in standard fashion under sterile conditions. She has been doing well in her course. She is ambulating and tolerating a regular diet. She is urinating without difficulty, and her lochia is normal. Her pain is well controlled with oral medications. She will be discharged home today on day #1 with instructions to continue her vitamins, while as well as continue ibuprofen and Tylenol [id number] as needed for pain management. A prescription has been sent to her preferred pharmacy for metronidazole 500 mg for treatment of her diagnosis of bacterial vaginosis. She intends to follow up with myself at [facility] in 1 week for routine visit or sooner as needed. She has been given precautions to call if she has any worsening fevers, chills, abdominal pain, increased bleeding, or foul-smelling vaginal lochia. TD: 10/30/2020 06:16 [place]
--- NOTE | 2020-10-30 13:27 | Labor Flowsheet ---
Labor Flowsheet Datetime Report Generated by CPN: 10/30/2020 13:26 Datetime: 10/30/2020 07:18 VITAL SIGNS NBP Sys/Yanira/Mean (mmHg): 95 : 51 : 61 Pulse: 62 Datetime: 10/29/2020 03:45 Stage of : Recovery PAIN Pain Scale: 0 Pain Presence: None/Denies Pain Type: N/A Datetime: 10/29/2020 03:30 LaborFlag: Labor Datetime: 10/29/2020 03:20 Temperature (C): 37.4 Temperature Route: Oral Datetime: 10/29/2020 03:09 SpO2 (%): 98 Datetime: 10/29/2020 02:00 UTERINE ACTIVITY Monitor Mode: External Frequency (min): 2-4 Quality: Moderate Duration (sec): 50-70 Pattern: Normal: <= 5 Contractions in 10 Minutes Resting Tone (Palpate): Relaxed ASSESSMENT A Monitor Mode: Telemetry FHR Baseline Rate : 120 Variability: Moderate 6-25 bpm Accelerations: 15X15 Decelerations: None Category: Category I Datetime: 10/29/2020 01:53 Patient Care Comments: 275ml out in urine Datetime: 10/29/2020 01:51 VAGINAL EXAM Dilatation (cm): 10.0 Effacement (%): 100 Station: 2 Datetime: 10/29/2020 01:30 Contraction Comments: due to maternal habitus Vibroacoustic Stim: Datetime: 10/29/2020 01:00 Resting Tone IUP (mmHg): Datetime: 10/29/2020 00:36 Patient Position/Activity: Left Lateral Datetime: 10/29/2020 00:30 Actions for Decelerations: Side to Side Datetime: 10/29/2020 00:23 Anesthesia Level Check: T10- Umbilicus Datetime: 10/29/2020 00:22 Pain Coping: Sleeping Datetime: 10/28/2020 23:58 Exam by: Chepe, CNM Datetime: 10/28/2020 21:33 Pain Assessment Comments: comfortable with epidural Datetime: 10/28/2020 21:32 MEDICATIONS Pitocin (milliunits): Increased to @ 12 Datetime: 10/28/2020 20:06 TEACHING Instructional Method: Verbal Plan of Care: Plan of Care Discussed; Vaginal Delivery Unit Routine: [place] to Room Labor/Induction: Labor Stages; Augmentation Pain Management: Epidural; Pain Scale/Goals; Comfort Measures Medications: Pitocin Datetime: 10/28/2020 20:01 Antiemetics/Antacids: Zofran (mg) @ 4 PATIENT CARE IV/Blood Work: New IV Bag Hung Datetime: 10/28/2020 20:00 MATERNAL ASSESSMENT Level of Consciousness: Alert DTR's/Clonus: DTRs 2+; No Clonus Headache: Denies Breath Sounds, Left: Clear and Equal Breath Sounds, Right: Clear and Equal Nausea/Vomiting: Denies RUQ Epigastric Pain: Denies Datetime: 10/28/2020 19:37 Epidural Procedure: Loading Dose Datetime: 10/28/2020 19:30 Comments: periods on intermit tracing d/t maternal position for epidural placement Datetime: 10/28/2020 19:20 PROCEDURE TIME OUT Procedure Verify: Correct Patient Identity; Correct Side and Site are Marked; Accurate Procedure Co nsent Form; Agreement on Procedure to be Done; Correct Patient Position; Addressed Need to Administer Antibiotics or Fluids for Irrigation; Safety Precautions Based on Patient History or Medication Use Datetime: 10/28/2020 19:17 COMMUNICATION Communication: Provider at Bedside Provider Notified (Name): Lamont Datetime: 10/28/2020 19:10 Communication Comments: Recieved report from C. Gambs, RN Datetime: 10/28/2020 19:00 FHR Baseline Changes: No Baseline Change Datetime: 10/28/2020 18:58 ANESTHESIA Anesthesia Plans: Epidural Anesthesia Comments: Anesthesia called for epidural placement Datetime: 10/28/2020 18:10 Monitor Interventions for FHR: Ultrasound Adjusted Datetime: 10/28/2020 17:29 Pain Location: Abdomen Pain Goal: 8 Pain Relief Measures: Comfort Measures Comfort Measures: Breathing/Relaxation; Family Support Datetime: 10/28/2020 17:24 I/O Interventions: Up to BR Datetime: 10/28/2020 16:44 Pitocin Checklist: At Least 1 Acceleration of 15 bpm x 15 Seconds in 30 Minutes or Adequate Variabi lity; No More than 1 Late Deceleration Occurred in Past 30 Minutes; No More than 2 Variable Decelerat ions > 60 Seconds in Duration and decreasing >60 bpm in 30 minutes; No More than 5 Uterine Contractio ns in 10 Minutes for any 20 Minute Interval; Uterus Palpates Soft between Contractions Datetime: 10/28/2020 11:51 Cervix, Consistency: Soft Cervix, Position: Midposition Datetime: 10/28/2020 09:47 Cervical Ripening Agents: Cytotec @ 50 Medication Comments: fourth dose Datetime: 10/28/2020 07:30 Oxygen Method: Room Air Datetime: 10/28/2020 07:25 PTL/PROM: Hydration; Expected Outcomes Related: Common Discomforts of ; Maternal Physical Changes; Hydration; Activity and Rest Datetime: 10/28/2020 06:58 Monitor Interventions for UA: [place] Adjusted Datetime: 10/28/2020 05:37 Respirations: 18 Datetime: 10/28/2020 03:06 Maternal Comments: Repositioned to RLP
== END 2020-10-30 13:25 | disposition home or self-care (01) | DRG 805 ==
LOC: WFO 17:49 → FBP 17:57 → WFO 19:50 → FBP 19:50
PROVIDERS: ADMIT Nurse Practitioner Obstetrics & Gynecology; ATTEND Nurse Practitioner Obstetrics & Gynecology
PROC: 3E0P7VZ Introduction of Hormone into Female Reproductive, Via Natural or Artificial Opening (ICD-10-PCS; 2020-10-27)
PROC: 0HQ9XZZ Repair Perineum Skin, External Approach (ICD-10-PCS; principal; 2020-10-29)
PROC: 10E0XZZ Delivery of Products of Conception, External Approach (ICD-10-PCS; 2020-10-29)
DX: O42.12 Full-term premature rupture of membranes, onset of labor more than 24 hours following rupture (principal); O75.3 Other infection during labor; Z37.0 Single live birth; B96.89 Other specified bacterial agents as the cause of diseases classified elsewhere; Z3A.38 38 weeks gestation of pregnancy; O71.82 Other specified trauma to perineum and vulva; Z20.828 Contact with and (suspected) exposure to other viral communicable diseases
CPT/HCPCS: 84112; 85025; 86850; 86900; 86901; 86920; 87481; 87635; 87661; 87801; 99213; A9270; J7120